=== PATIENT | female | born 1970 | race Caucasian/White ===

== ENCOUNTER 2016-10-24 21:00 | Emergency (ER) | payer BC, OTHER ==
[~2016-10-24] VITALS: Ht 167.6 cm; Wt 68.0 kg
[2016-10-24 21:22] VITALS: TEMP 36.8; Ht 167.6 cm; Wt 68.0 kg
--- NOTE | 2016-10-24 21:52 | DIAGNOSTIC IMAGING REPORT ---
RIGHT ANKLE 3 VIEWS CLINICAL HISTORY: Right ankle injury. FINDINGS: 3 views of the right ankle are obtained. No prior studies are available for comparison at the time of dictation. The skeletal structures are well mineralized. No fracture is seen. The ankle mortise is intact. A joint effusion is identified and there is significant soft tissue edema around the ankle. There is a tiny plantar calcaneal enthesophyte. IMPRESSION: Soft tissue swelling and joint effusion. No fracture is seen. Electronically signed by: Lenny Paul M.D. 10/24/2016 9:51 PM Dictated Date/Time: 10/24/2016 9:50 PM
[2016-10-24 22:13] VITALS: BP 131/53; PULSE 72; O2SAT 99
--- NOTE | 2016-10-24 22:35 | EMERGENCY ROOM VISIT NOTE ---
History First contact with patient: 22:13 Chief Complaint: ANKLE PAIN Stated Complaint: SWOLLEN RT ANKLE History of Present Illness The patient is a 46 year old female who presents to the Emergency Room via private vehicle with complaints of "swollen right ankle". The patient states that around 7 PM this evening she was at home, and rolled her right ankle medially. She points to the right lateral malleolus as a location of pain that she rates as a 7/10. She declined any pain medication at this time. She declines taking any medication previously for the pain. She denies any other areas of injury. Review of Systems A complete 6-point Review of Systems was discussed with the patient, with pertinent positives and negatives listed in the History of Present Illness. All remaining Review of Systems questions can be considered negative unless otherwise specified. Past Medical/Surgical History Previous sprained ankle of the left. Family History No pertinent family history. Social History Smoking Status: Never Smoker Social History: Patient was at home with family. Physical Exam Vital Signs Date Time Temp Pulse Resp B/P Pulse Ox O2 Delivery O2 Flow Rate FiO2 10/24/16 22:13 72 18 131/53 99 Room Air 10/24/16 21:22 36.8 87 18 99 Room Air Physical Exam VITAL SIGNS - Vital signs and nursing notes were reviewed. GENERAL -46-year-old female appearing her stated age who is in no acute distress. Communicates well with provider and answers questions appropriately. SKIN - Without rashes. No evidence of breaks in the integument overlying the right ankle. EXTREMITIES - No clubbing or peripheral cyanosis. No pretibial edema present. There is tenderness to palpation overlying the right lateral malleolus, particularly inferior to the right lateral malleolus. There is no tibia or fibula tenderness. There is no knee tenderness. There is no foot tenderness. Pain is localized to the right malleolus region. Decreased range of motion of this region. Medical Decision & Procedures ER Provider Diagnostic Interpretation: RIGHT ANKLE 3 VIEWS CLINICAL HISTORY: Right ankle injury. FINDINGS: 3 views of the right ankle are obtained. No prior studies are available for comparison at the time of dictation. The skeletal structures are well mineralized. No fracture is seen. The ankle mortise is intact. A joint effusion is identified and there is significant soft tissue edema around the ankle. There is a tiny plantar calcaneal enthesophyte. IMPRESSION: Soft tissue swelling and joint effusion. No fracture is seen. Electronically signed by: Lenny Paul M.D. 10/24/2016 9:51 PM Dictated Date/Time: 10/24/2016 9:50 PM Medical Decision Patient was seen and evaluated as above. After obtaining a thorough history and physical examination ED protocol had already obtained a radiograph of the right ankle. This was reviewed by myself and read by the radiologist with results as above. No evidence of acute fracture. There is evidence of sprain upon examination with a large amount of edema. She'll be fitted with a gel ankle splint, and made nonweightbearing but notes that she does have her own crutches here. She was instructed to follow-up with orthopedic surgeon regarding today's visit. She was educated upon worrisome symptoms which to return, had questions prior to discharge and was discharged home in good condition. In the evaluation and treatment of this patient, the following differential diagnoses were considered: Ankle Fracture, Ankle Sprain, Distal Fibula Fracture , Distal Tibia Fracture, Foot Fracture, [place] Fracture. Impression Primary Impression: Right ankle pain Departure Information Dispostion Home / Self-Care Condition GOOD Referrals No Doctor, Assigned (PCP) Harvinder See D.O. Patient Instructions [facility] Additional Instructions You have been treated in the Emergency Department for a right Ankle injury. For pain control, you can use the following [id number] medicines (if >12 yo): - Regular strength (325mg/tab) Tylenol (acetaminophen) 2 tabs every 4-6 hours as needed. Do not exceed 12 tablets in a 24 hour period. Avoid taking more than 3 grams (3000 mg) of Tylenol per day. This includes any other sources of acetaminophen you may take on a regular basis. - Regular strength (200 mg/tab) Advil (ibuprofen) 1-2 tabs every 4-6 hours as needed. Do not exceed a dose of 3200 mg per day. If this is a recent injury (<24 hrs), ice can be applied to the area of pain for the first 3 days to help decrease pain and inflammation. You have been provided the number for an Orthopaedic Surgeon. You should call this number as soon as possible to establish a follow-up visit from today's Emergency Department visit. Keep the ankle brace/splint in place until cleared by Orthopedics. Use the crutches you have been provided to keep ALL weight off of the ankle until weight bearing is tolerable. Return to the Emergency Department if your current symptoms worsen despite treatment course outlined above, or if you develop any of the following symptoms : intractable pain despite aforementioned treatment course or new onset of numbness or tingling of the foot. Please return to the emergency department with any new/concerning symptoms.
== END 2016-10-24 22:50 | disposition home or self-care (01) ==
LOC: C.EDB 21:02 → C.EDD 22:50
DX: M25.471 Effusion, right ankle (principal); X50.0XXA Overexertion from strenuous movement or load, initial encounter